=== PATIENT | male | born 1970 | race Caucasian/White ===

== ENCOUNTER 2017-10-26 08:54 | Outpatient (CLI) | payer OTHER ==
[2016-05-22 17:25] VITALS: BP 168/97
[2017-10-26 10:09] LABS: eGFR (African) > 60; eGFR (Non-African) > 60
== END 2017-10-26 08:55 ==
LOC: LAB 08:54
PROVIDERS: ATTEND Physician Assistant
DX: Z13.6 Encounter for screening for cardiovascular disorders (principal); I10 Essential (primary) hypertension
CPT/HCPCS: 36415; 80053; 80061

== ENCOUNTER 2018-02-25 12:52 | Outpatient (CLI) | payer OTHER ==
[2016-05-22 17:25] VITALS: BP 168/97
== END 2018-02-25 12:57 | disposition home or self-care (01) ==
LOC: LAB 12:52
PROVIDERS: ATTEND Physician Assistant
DX: E78.5 Hyperlipidemia, unspecified (principal)
CPT/HCPCS: 36415; 80061

== ENCOUNTER 2018-07-27 08:22 | Emergency (ER) | payer OTHER ==
--- NOTE | 2018-07-27 08:38 | ED Physician Documentation ---
Sore Throat/Dental Pain - HISTORIAN Historian: patient - HPI Stated Complaint: sore throat x 1 day and sinus allergy symptoms x 3 days no fever Chief Complaint: Sore Throat Onset: days ago (1) Context: Possible Infection Associated Symptoms: sore throat, mild, runny nose, congestion. denies: fever, chills Further Comments: yes (HE states he has sore throat and allergy drainage. No fever. He has taken OTC meds but not today. He is concerned with infection due to graduation today .) - ROS CONST: no problems CVS/RESP: denies: chest pain, shortness of breath MS/SKIN/LYMPH: denies: rash - PAST HX Past History: none Immunizations: UTD Allergies/Adverse Reactions: Allergies Allergy/AdvReac Type Severity Reaction Status Date / Time Penicillins Allergy Verified 07/27/18 08:44 - SOCIAL HX Smoking History: non-smoker Alcohol Use: none Drug Use: none - FAMILY HX Family History: No - VITAL SIGNS Vital Signs: Vital Signs Temp Pulse Resp BP Pulse Ox 98.4 F 72 19 141/93 96 07/27/18 08:59 07/27/18 08:59 07/27/18 08:59 07/27/18 08:59 07/27/18 08:59 - REVIEWED ASSESSMENTS Nursing Assessment Reviewed: Yes Vitals Reviewed: Yes ED Results Lab/Radiology - Lab Results Lab Results: Lab Results 07/27/18 08:42 Group A Strep Screen Negative (NEGATIVE) - Orders Orders: ED Orders Category Date Time Status GRP A STREP SCREEN Routine Lab 07/27/18 08:42 Completed THROAT CULTURE Routine Lab 07/27/18 08:42 Received Sore throat Physical Exam - EXAM General Appearance: no acute distress, alert Head/Neck: head nml inspection, no lymphadenopathy. No: pain over sinuses Eyes: eyes nml inspection, PERRL. No: pain of sinuses Mouth/Throat: lips nml, gums nml, pharynx nml, voice nml, no drooling, no air way problems Ear/Nose: nml inspection Respiratory: no resp. distress, breath sounds nml CVS: reg. rate & rhythm, heart sounds nml Abdomen: soft, normal bowel sounds, no distension Extremities: non-tender Skin: warm/dry Neuro/Psych: oriented x3 Discharge Clincal Impression: Allergic rhinitis Qualifiers: Allergic rhinitis trigger: unspecified Allergic rhinitis seasonality: unspecified Qualified Code(s): J30.9 - Allergic rhinitis, unspecified Referrals: Primary Doctor,No [Primary Care Provider] - 2 Days Comments: 1. Flonase use 1 spray in each nostril daily 2. Clairitn 10 mg take 1 by mouth daily 3. Medrol dose pack as directed 4. Saline nasal rinse 5. OTC Meds as directed as needed for symptom control 6. See PCP In 2 days if no improvement 7. Return to ER for any increasing concerns Condition: Stable Disposition: 01 HOME, SELF-CARE Decision to Admit: NO Date of Decison to Admit: 07/27/18 Decision Time: 08:51
[2018-07-27 08:43] VITALS: BP 141/93
== END 2018-07-27 08:59 | disposition home or self-care (01) ==
LOC: ED 08:22
DX: J30.9 Allergic rhinitis, unspecified (principal)
CPT/HCPCS: 87070; 87880; 99283